=== PATIENT | female | born 1980 | race Caucasian/White ===

== ENCOUNTER 2019-07-19 21:24 | Emergency (ER) | payer BC ==
[~2019-07-19] VITALS: Ht 157.5 cm; Wt 70.9 kg
[~2019-07-19 21:24] MED LIST: ALBU8.5H4 IH; CHOL400C8 PO; HYDR-4383 PO; METO-292 PO; MULT-1085 PO; ONDA4TAB6 PO; PANT-47 PO; ZOF4T PO
[2019-07-19] MEDS ORDERED: methylPREDNISolone sod succ 125mg/2ml vial ONE (21:28)
[2019-07-19] MEDS ORDERED: albuterol 2.5 MG/3 ML nebule CONTNEB PRN (21:30)
[2019-07-19] MEDS ORDERED: magnesium 2GM in 50ml NS 50 ML IV ONE (21:30)
[2019-07-19] MEDS ORDERED: normal saline 1000ML IV soln IVB ONE (21:30)
[2019-07-19] MEDS ORDERED: methylPREDNISolone sod succ 125mg/2ml vial IV ONE (21:30)
[2019-07-19] MEDS ORDERED: famotidine/PF 10 mg/ml inj IV ONE (21:30)
[2019-07-19] MEDS ORDERED: LORazepam 2 mg/ml vial IV ONE (21:35)
[2019-07-19] MEDS ORDERED: diphenhydrAMINE 50 mg/ml inj IV ONE (21:35)
[2019-07-19] MEDS ORDERED: METH4TAB3 PO (22:49)
[2019-07-19] MEDS ORDERED: ALBU6.7H9 INH (22:49)
[2019-07-19] MEDS ORDERED: EPIN0.3P3 SQ (22:49)
[2019-07-19 23:05] VITALS: BP 106/69
== END 2019-07-19 23:15 | disposition home or self-care (01) ==
LOC: ER 21:24
DX: J45.909 Unspecified asthma, uncomplicated (principal); Z90.49 Acquired absence of other specified parts of digestive tract; Z90.710 Acquired absence of both cervix and uterus; Z98.890 Other specified postprocedural states; Z88.2 Allergy status to sulfonamides; Z88.0 Allergy status to penicillin; Z88.8 Allergy status to other drugs, medicaments and biological substances; Z79.899 Other long term (current) drug therapy
CPT/HCPCS: 71045; 94644; 96365; 96375; 99291; J1200; J2930; J3475; J3490; 94640; 94760